=== PATIENT | female | born 1995 | race Caucasian/White ===

== ENCOUNTER 2017-08-06 13:44 | Inpatient (IN) | payer OTHER ==
[~2017-08-06] VITALS: Ht 165.1 cm; Wt 93.0 kg
[~2017-08-06 13:44] MED LIST: PRENATAL CAPLE1 EACH PO
[2017-08-21] MEDS ORDERED: VALTREX1000 MG PO (11:56)
[2017-08-22] MEDS ORDERED: IBUPROFEN400 MG PO (08:11)
== END 2017-08-22 14:26 | DRG 767 ==
LOC: OB/GYN 08-12 13:14 → LDR 08-20 07:58 → OB/GYN 08-20 15:49
PROC: 10E0XZZ Delivery of Products of Conception, External Approach (ICD-10-PCS; principal; 2017-08-20)
PROC: 0HQ9XZZ Repair Perineum Skin, External Approach (ICD-10-PCS; 2017-08-20)
PROC: 10907ZC Drainage of Amniotic Fluid, Therapeutic from Products of Conception, Via Natural or Artificial Opening (ICD-10-PCS; 2017-08-20)
PROC: 3E033VJ Introduction of Other Hormone into Peripheral Vein, Percutaneous Approach (ICD-10-PCS; 2017-08-20)
PROC: 4A033R1 Measurement of Arterial Saturation, Peripheral, Percutaneous Approach (ICD-10-PCS; 2017-08-20)
PROC: 4A1HXCZ Monitoring of Products of Conception, Cardiac Rate, External Approach (ICD-10-PCS; 2017-08-20)
PROC: 0UL70ZZ Occlusion of Bilateral Fallopian Tubes, Open Approach (ICD-10-PCS; 2017-08-21)
DX: O70.0 First degree perineal laceration during delivery (principal); Z37.0 Single live birth; O99.824 Streptococcus B carrier state complicating childbirth; Z3A.39 39 weeks gestation of pregnancy; Z30.2 Encounter for sterilization

== ENCOUNTER 2017-08-13 16:39 | Outpatient (CLI) | payer OTHER | END 2017-08-13 21:54 | disposition home or self-care (01) | LOC: OBS/DEL 16:39 | DX: O47.1 False labor at or after 37 completed weeks of gestation (principal); Z34.03 Encounter for supervision of normal first pregnancy, third trimester ==

== ENCOUNTER 2018-01-01 13:48 | Emergency (ER) | payer OTHER ==
[~2018-01-01] VITALS: Ht 165.1 cm; Wt 84.4 kg
[~2018-01-01 13:48] MED LIST changes: +IBUPROFEN400 MG PO; +VALTREX1000 MG PO
== END 2018-01-01 18:19 | disposition home or self-care (01) ==
LOC: ER 13:48
DX: K29.60 Other gastritis without bleeding (principal)